=== PATIENT | male | born 1980 | race Caucasian/White ===

== ENCOUNTER 2020-08-14 14:16 | Emergency (ER) | payer OTHER ==
[2020-08-14 14:29] VITALS: BP 157/91; PULSE 97; BMI 27.3
[2020-08-14 16:11] LABS: BASO % 0.3 % (0-2.0); EOS % 0.9 % (0-4.5); HEMATOCRIT 41.6 % (35.4-49); HEMOGLOBIN 14.3 GM/dL (11.7-16.9); LYMPH % 33.6 % (8-40); MCH 31.6 pg (25.7-33.7); MCHC 34.4 g/dl (32.0-35.9); MEAN CELL VOLUME 91.8 fl (80-96); MEAN PLT VOLUME 8.7 fl (7.5-11.1); MONO % 6.4 % (3.8-10.2); NEUT % 58.8 % (42.8-82.8); PLATELET COUNT 257 K/MM3 (134-434); RBC 4.53 M/mm3 (4.00-5.60); RDW 12.5 % (11.9-15.9); WHITE BLOOD COUNT 7.8 K/mm3 (4.0-10.0)
[2020-08-14 16:25] LABS: CHLORIDE 103 mmol/L (98-107); SODIUM 135 mmol/L (136-145)
[2020-08-14 16:28] LABS: ALBUMIN 4.3 g/dl (3.4-5.0); ANION GAP 7 MMOL/L (8-16); BLOOD UREA NITROGEN 14.8 mg/dL (7-18); CALCIUM 9.5 mg/dL (8.5-10.1); CO2 25 mmol/L (21-32); GLUCOSE,RANDOM 96 mg/dL (74-106); MAGNESIUM 2.2 mg/dL (1.8-2.4)
[2020-08-14 16:31] LABS: CREATININE 0.7 mg/dL (0.55-1.3); SGOT/AST 23 U/L (15-37); SGPT/ALT 43 U/L (13-61)
[2020-08-14 16:32] LABS: BILIRUBIN,TOTAL 0.4 mg/dL (0.2-1)
[2020-08-14 16:33] LABS: TOT PROT 7.8 g/dl (6.4-8.2)
[2020-08-14 16:34] LABS: ALK PHOS 87 U/L (45-117)
== END 2020-08-14 16:56 | disposition home or self-care (01) ==
LOC: JER 14:16
DX: R07.9 Chest pain, unspecified (principal)
CPT/HCPCS: 36415; 71046-TC-FY; 80053; 82550; 83735; 84484; 85025; 93005; 93010; 99285-25

== ENCOUNTER 2022-09-12 03:37 | Emergency (ER) | payer OTHER ==
[2022-09-12 03:49] VITALS: RESP 18; BMI 27.4
[2022-09-12] MEDS ORDERED: ACETAMINOPHEN 325 MG TABLET (FP) PO ONE (04:57)
[2022-09-12 05:51] LABS: BASO % 0.8 % (0-2.0); EOS % 1.8 % (0-4.5); HEMATOCRIT 40.3 % (35.4-49); LYMPH % 42.2 % (8-40); MCH 31.6 pg (25.7-33.7); MCHC 34.8 g/dl (32.0-35.9); MEAN CELL VOLUME 90.9 fl (80-96); MEAN PLT VOLUME 8.4 fl (7.5-11.1); MONO % 5.7 % (3.8-10.2); NEUT % 49.5 % (42.8-82.8); PLATELET COUNT 239 10^3/uL (134-434); RBC 4.44 M/mm3 (4.00-5.60); RDW 12.7 % (11.9-15.9); WHITE BLOOD COUNT 8.4 K/mm3 (4.0-10.0)
[2022-09-12 06:11] LABS: CALCIUM 8.6 mg/dL (8.5-10.1)
[2022-09-12 06:12] LABS: ALBUMIN 3.9 g/dl (3.4-5.0)
[2022-09-12 06:15] LABS: CREATININE 0.5 mg/dL (0.55-1.3)
[2022-09-12 06:16] LABS: BILIRUBIN,TOTAL 0.3 mg/dL (0.2-1); TOT PROT 7.3 g/dl (6.4-8.2)
[2022-09-12 06:55] VITALS: BP 134/94; PULSE 83; TEMP 97.9
== END 2022-09-12 07:05 | disposition home or self-care (01) ==
LOC: JER 03:37
DX: R07.9 Chest pain, unspecified (principal)
CPT/HCPCS: 36415; 71045-TC-FY; 80053; 84484; 85025; 93005; 93010; 99285-25